=== PATIENT | male | born 1995 | race Caucasian/White ===

== ENCOUNTER 2019-07-19 08:32 | Emergency (ER) | payer OTHER ==
[~2019-07-19] VITALS: Ht 188 cm; Wt 102.6 kg
[2019-07-19 08:40] VITALS: BP 126/72; Ht 188 cm; Wt 102.6 kg
[2019-07-19 10:14] LABS: UA SPECIFIC GRAVITY 1.025 (1.005-1.035); microscopic required? YES; urine erythrocyte TRACE (NEGATIVE)
== END 2019-07-19 09:49 | disposition home or self-care (01) ==
LOC: ED 08:32
PROVIDERS: Emergency Medicine
DX: R30.0 Dysuria (principal)
CPT/HCPCS: 87491; 87591